=== PATIENT | male | born 1955 | race Caucasian/White ===

== ENCOUNTER 2020-07-17 07:17 | Outpatient (CLI) | payer MEDICARE, BC ==
[~2020-07-17] VITALS: Ht 185.4 cm; Wt 192.8 kg
[~2020-07-17 07:17] MED LIST: ALLO100T PO; ASPI-611 PO; CARV-50 PO; CETI-90 PO; DEXL60CA3 PO; DICL50TA8 PO; FENO145T26 PO; MODAFINIL PO; PIOG15TA8 PO; TRAM50TA2 PO; VALS320T2 PO; VENL-191 PO
[2020-07-17 07:51] LABS: ABG BASE EXCESS 0.8 mmol/L (-2.0-2.0); ABG HCO3 26.5 mmol/L (22.0-26.0); ABG PCO2 (T) 46.7 mmHg (35.0-48.0); ABG PO2 (T) 84.9 mmHg (75.0-100.0); ALLEN'S TEST POSITIVE; FLOW 3 L/min; FMetHb 0.1 % (0.0-1.5); FO2Hb 95.9 % (94-97); TOTAL HEMOGLOBIN 12.1 G/dl (14.0-18.0)
[2020-07-17] MEDS ORDERED: albuterol 2.5 MG/3 ML nebule NEB ONE (08:48)
== END 2020-07-17 23:59 | disposition home or self-care (01) ==
LOC: RT 07:17
PROVIDERS: ATTEND Internal Medicine Pulmonary Disease
DX: R06.02 Shortness of breath (principal); D64.9 Anemia, unspecified
CPT/HCPCS: 36600; 82803; 85018; 94060; 94727; 94729; 94760

== ENCOUNTER 2021-11-05 11:31 | Inpatient (IN) | payer MEDICARE, BC ==
[~2021-11-05] VITALS: Ht 188 cm; Wt 181.8 kg
[~2021-11-05 11:31] MED LIST changes: +ACET-1015 PO; +CHOL50004 PO; -DEXL60CA3 PO; -FENO145T26 PO; -MODAFINIL PO; +OLME40TA18 PO; -TRAM50TA2 PO; -VALS320T2 PO
[2021-11-05 13:17] LABS: BASOPHILS # (AUTO) 0.1 X10'3 (0-0.2); BASOPHILS % (AUTO) 0.4 % (0-1); EOSINOPHILS % (AUTO) 0.2 % (0-6); HEMOGLOBIN 10.5 g/dl (14.0-17.9); LYMPHOCYTES # (AUTO) 1.4 X10'3 (1.1-4.8); LYMPHOCYTES % (AUTO) 7.5 % (21-51); MEAN CORPUSCULAR HEMOGLOBIN 32.9 PG (27.0-31.0); MEAN CORPUSCULAR VOLUME 99.8 FL (78-98); MEAN PLATELET VOLUME 6.3 FL (7.4-10.4); MONOCYTES # (AUTO) 1.6 X10'3 (0-0.9); MONOCYTES % (AUTO) 8.8 % (2-12); NEUTROPHILS # (AUTO) 15.5 X10'3 (1.8-7.7); NEUTROPHILS % (AUTO) 83.1 % (42-75); PLATELET COUNT 340 X10'3 (140-440); RED BLOOD COUNT 3.21 X10'6 (4.70-6.10); RED CELL DISTRIBUTION WIDTH 14.8 % (11.5-14.5); WHITE BLOOD COUNT 18.6 X10'3 (4.5-11.0)
[2021-11-05 13:17] LABS: CLARITY,URINE CLOUDY (Clear); COLOR,URINE YELLOW (Yellow); GLUCOSE, URINE NEGATIVE (Neg); KETONES,URINE TRACE mg/dl (Neg); LEUKOCYTE ESTERASE ,URINE MODERATE (Neg); NITRITES, URINE POSITIVE (Neg); OCCULT BLOOD,URINE MODERATE (Neg); PH,URINE 5.5 (4.8-8.0); PROTEIN,URINE TRACE mg/dl (Neg); UROBILINOGEN,URINE 0.2 E.U/dL (0.2-1.0)
[2021-11-05 13:20] LABS: UA COLLECTION TYPE CLN CATCH MIDSTREAM
[2021-11-05 13:27] LABS: WBC,URINE TNTC /HPF (0-4)
[2021-11-05 13:28] LABS: BACTERIA,URINE 4+ /HPF (Neg); MUCUS STRANDS FEW /LPF (Neg); SQUAMOUS EPITHELIAL CELL,UR FEW /LPF (FEW)
[2021-11-05 13:29] LABS: TRANSITIONAL EPI CELLS,URINE FEW /HPF; WBC CLUMPS,URINE FEW /HPF (NEGATIVE)
[2021-11-05] MEDS ORDERED: normal saline 1000ml 1,000 ML IV ONE (13:35)
[2021-11-05] MEDS ORDERED: CefTRIAXone/D5W-Rocephin 1gm 50 ML IV ONE (13:35)
[2021-11-05 13:40] LABS: ALANINE AMINOTRANSFERASE 24 U/L (12-78); ALBUMIN 2.3 G/DL (3.4-5.0); ALBUMIN/GLOBULIN RATIO 0.6 (1.1-1.5); ALKALINE PHOSPHATASE 80 IU/L (46-116); ANION GAP 7 (8-16); ASPARTATE AMINO TRANSFERASE 15 U/L (10-37); BILIRUBIN,TOTAL 0.4 MG/DL (0.1-1.0); BLOOD UREA NITROGEN 24 MG/DL (7-18); BUN/CREATININE RATIO 16.4 (5.4-32.0); CALCIUM 8.8 MG/DL (8.5-10.1); CHLORIDE 100 MMOL/L (99-107); CREATININE 1.46 MG/DL (0.60-1.10); GLUCOSE 148 MG/DL (70-104); POTASSIUM 3.9 MMOL/L (3.5-5.1); SODIUM 137 MMOL/L (135-145); TOTAL CARBON DIOXIDE 29.9 MMOL/L (24-32); TOTAL PROTEIN 6.2 G/DL (6.4-8.2); eGFR 48 ML/MIN
[2021-11-05] MEDS ORDERED: ciprofloxacin lact 400MG/200ML 200 ML IV ONE (14:10)
--- NOTE | 2021-11-05 14:20 | NUR ---
PT TO/FROM CT WITHOUT INCIDENT
--- NOTE | 2021-11-05 14:35 | NUR ---
XRAY AT BEDSIDE.
[2021-11-05] MEDS ORDERED: PIOG45TA5 PO (15:27)
[2021-11-05] MEDS ORDERED: VENL75TA4 PO (15:30)
[2021-11-05] MEDS ORDERED: TRAM50TA2 PO (15:33)
[2021-11-05] MEDS ORDERED: CYAN500T15 PO (15:36)
[2021-11-05] MEDS ORDERED: traMADol 50MG tablet PO ONE (17:10)
[2021-11-05] MEDS ORDERED: HYDROcodone/acetaminophen 5mg/325mg tablet PO PRN (17:25)
[2021-11-05] MEDS ORDERED: HYDROcodone/acetaminophen 10/325mg tab PO PRN (17:25)
[2021-11-05] MEDS ORDERED: mag hydrox/Alum hydrox/simeth 30ml oral suspension PO PRN (17:25)
[2021-11-05] MEDS ORDERED: acetaminophen 325mg tablet PO PRN (17:25)
[2021-11-05] MEDS ORDERED: magnesium Cl slow-release 64mg tablet PO PRN (17:25)
[2021-11-05] MEDS ORDERED: morphine 2 MG/ML inj. syringe IV PRN ×2 (17:25)
[2021-11-05] MEDS ORDERED: POTASSIUM BICARB 20meq eff tab 20 MEQ TABLET.EFF PO PRN ×2 (17:25)
[2021-11-05] MEDS ORDERED: magnesium hydroxide 30ml (MOM) UD suspension PO PRN (17:25)
[2021-11-05] MEDS ORDERED: magnesium 4gm in 100ml NS 100 ML IV PRN (17:25)
[2021-11-05] MEDS ORDERED: potassium CL 10mEq/100ml bag 100 ML IV PRN (17:25)
[2021-11-05] MEDS ORDERED: MESSAGE TO PHARMACY PO ONE (17:40)
[2021-11-05] MEDS ORDERED: DEXTROSE 15 GM of carb/4 tabs (each vial/BOTTLE has 4 tablets) PO PRN ×2 (17:40)
[2021-11-05] MEDS ORDERED: glucagon, human recombinant 1mg kit SUBCUT PRN (17:40)
[2021-11-05] MEDS ORDERED: insulin Lispro (HumaLOG) vial - multi-dose SQ SCH (17:40)
[2021-11-05] MEDS ORDERED: dextrose 50%-water 50ml dispensing syringe IV PRN ×2 (17:40)
[2021-11-05] MEDS ORDERED: PERFLUTREN PROTEIN-A MICROSPHR (Optison) 0.22 MG/ML 3ML VIAL IV ONE (20:05)
[2021-11-05] MEDS: ciprofloxacin lact 400MG/200ML 200 ML IV SCH (20:11)
[2021-11-05] MEDS: carVEDilol 12.5mg tablet PO SCH (20:12)
[2021-11-05] MEDS: venlafaxine XR 75mg capsule (Q24H) PO SCH (20:12)
[2021-11-05] MEDS: docusate sod 100mg capsule PO SCH (20:12)
[2021-11-05] MEDS: insulin glargine (Lantus) pen - multi-dose SQ SCH (20:13)
[2021-11-06] MEDS: metroNIDAZOLE-Flagyl 500mg/NS 100 ML IV SCH ×2 (01:31→07:31)
[2021-11-06] MEDS: heparin, porcine 5000 units/ml vial SQ SCH ×2 (01:39→07:26)
[2021-11-06 06:41] LABS: BASOPHILS # (AUTO) 0.1 X10'3 (0-0.2); BASOPHILS % (AUTO) 0.4 % (0-1); EOSINOPHILS # (AUTO) 0.2 X10'3 (0-0.9); HEMATOCRIT 30.2 % (42.0-52.0); HEMOGLOBIN 10.2 g/dl (14.0-17.9); LYMPHOCYTES # (AUTO) 1.9 X10'3 (1.1-4.8); LYMPHOCYTES % (AUTO) 12.3 % (21-51); MEAN CORPUSCULAR HEMOGLOBIN 34.4 PG (27.0-31.0); MEAN CORPUSCULAR HGB CONC 33.9 g/dL (33.0-36.5); MEAN CORPUSCULAR VOLUME 101.4 FL (78-98); MEAN PLATELET VOLUME 6.3 FL (7.4-10.4); MONOCYTES # (AUTO) 1.7 X10'3 (0-0.9); MONOCYTES % (AUTO) 11.2 % (2-12); NEUTROPHILS # (AUTO) 11.5 X10'3 (1.8-7.7); NEUTROPHILS % (AUTO) 75.1 % (42-75); PLATELET COUNT 348 X10'3 (140-440); RED BLOOD COUNT 2.97 X10'6 (4.70-6.10); WHITE BLOOD COUNT 15.3 X10'3 (4.5-11.0)
[2021-11-06] MEDS: allopurinol 100mg tablet PO SCH (07:23)
[2021-11-06] MEDS: docusate sod 100mg capsule PO SCH ×2 (07:23→20:40)
[2021-11-06] MEDS: aspirin 81mg, enteric-coated 1 TAB TABLET.DR PO SCH (07:23)
[2021-11-06] MEDS: carVEDilol 12.5mg tablet PO SCH ×2 (07:24→20:40)
[2021-11-06] MEDS: venlafaxine XR 75mg capsule (Q24H) PO SCH ×2 (07:24→20:40)
[2021-11-06] MEDS: cholecalciferol (vitamin D3) 1,000 unit (25mcg) tablet PO SCH (07:25)
[2021-11-06 07:32] LABS: ALANINE AMINOTRANSFERASE 21 U/L (12-78); ALBUMIN 2.2 G/DL (3.4-5.0); ALBUMIN/GLOBULIN RATIO 0.6 (1.1-1.5); ALKALINE PHOSPHATASE 78 IU/L (46-116); ANION GAP 8 (8-16); ASPARTATE AMINO TRANSFERASE 14 U/L (10-37); BILIRUBIN,TOTAL 0.4 MG/DL (0.1-1.0); BLOOD UREA NITROGEN 22 MG/DL (7-18); BUN/CREATININE RATIO 15.4 (5.4-32.0); CALCIUM 8.2 MG/DL (8.5-10.1); CHLORIDE 102 MMOL/L (99-107); CREATININE 1.43 MG/DL (0.60-1.10); GLUCOSE 149 MG/DL (70-104); MAGNESIUM 1.6 MG/DL (1.5-2.4); POTASSIUM 3.8 MMOL/L (3.5-5.1); SODIUM 137 MMOL/L (135-145); TOTAL CARBON DIOXIDE 27.4 MMOL/L (24-32); eGFR 49 ML/MIN
[2021-11-06] MEDS ORDERED: furosemide 10 MG/1 ML 10ml inj IV SCH (08:00)
[2021-11-06] MEDS: cyanocobalamin 500mcg tablet PO SCH (08:23)
[2021-11-06] MEDS: cetirizine 10mg tablet PO SCH (08:23)
[2021-11-06] MEDS: ciprofloxacin lact 400MG/200ML 200 ML IV SCH ×2 (08:56→20:41)
[2021-11-06] MEDS: losartan 50mg tablet PO SCH (08:56)
--- NOTE | 2021-11-06 10:45 | NUR ---
Keke marley in [facility] - 11/06/21 at 1145 by KHUSHBOO Patient was picked up by JORJE for an Ct scan of the ABDOMEN at [facility].
--- NOTE | 2021-11-06 11:40 | NUR ---
Note amiewolf in ED - 11/06/21 at 1145 by KHUSHBOO Patient returned from [facility] with [facility] scan not done. According to [facility] the [facility] imaging needed a nurse to be present with the [facility] team and the patients imaging appointment was at 9 which the patient missed. Information of the transportation wasn't communicated between interprofessional members of the team and as the dayshi nurse I wasn't notified until [facility] showed up around 1040.
--- NOTE | 2021-11-06 11:46 | NUR ---
Patient was picked up by JORJE for an Ct scan of the ABDOMEN at [facility]. Addendum: 11/06/21 at 1146 by KOMAL Correction patient was picked up by JORJE around 1045 am
--- NOTE | 2021-11-06 11:46 | NUR ---
Patient returned from [facility] with CT scan not done. According to [facility] the [facility] needed a nurse to be present with the [facility] team and the patients imaging appointment was at 9 which the patient missed. Information of the transportation wasn't communicated between interprofessional members of the team and as the dayshift nurse I wasn't notified until [facility] showed up around 1040.
[2021-11-06] MEDS: ondansetron/PF 4mg/2ml inj IV PRN (11:56)
[2021-11-06 13:16] VITALS: BP 114/47
[2021-11-06 15:00] VITALS: BP 140/57
[2021-11-06] MEDS ORDERED: FURO40TA4 PO (16:52)
--- NOTE | 2021-11-06 17:41 | NUR ---
Report given to Mora ABARCA. Chance given to ask questions. Pt transferred with all personal belongings via [facility] to room 3013B. Spouse at bedside. Addendum: 11/06/21 at 1818 by Hosea Bynum RN Amended: Links added.
[2021-11-06 18:08] VITALS: BP 136/61
--- NOTE | 2021-11-06 19:29 | NUR ---
Patient alert and orientated. Vital signs stable. Nursing report given to night nurse.
[2021-11-06 22:00] VITALS: BP 118/47
[2021-11-06] MEDS ORDERED: traMADol 50MG tablet PO ONE (22:10)
[2021-11-07 02:00] VITALS: BP 134/52
[2021-11-07 06:00] VITALS: BP 115/51
--- NOTE | 2021-11-07 06:40 | NUR ---
Patient in room PCU 3013. I have received report from TEVIN Ye and had the opportunity to ask questions and assume patient care.
[2021-11-07] MEDS: heparin, porcine 5000 units/ml vial SQ SCH ×4 (07:17→15:25)
[2021-11-07] MEDS: metroNIDAZOLE-Flagyl 500mg/NS 100 ML IV SCH ×4 (07:17→15:26)
[2021-11-07] MEDS: insulin glargine (Lantus) pen - multi-dose SQ SCH (07:18)
[2021-11-07] MEDS: ondansetron/PF 4mg/2ml inj IV PRN (07:50)
[2021-11-07 08:25] LABS: BASOPHILS # (AUTO) 0.1 X10'3 (0-0.2); BASOPHILS % (AUTO) 0.7 % (0-1); EOSINOPHILS # (AUTO) 0.3 X10'3 (0-0.9); EOSINOPHILS % (AUTO) 3.3 % (0-6); HEMATOCRIT 31.4 % (42.0-52.0); HEMOGLOBIN 10.6 g/dl (14.0-17.9); LYMPHOCYTES # (AUTO) 1.5 X10'3 (1.1-4.8); LYMPHOCYTES % (AUTO) 16.3 % (21-51); MEAN CORPUSCULAR HEMOGLOBIN 34.1 PG (27.0-31.0); MEAN CORPUSCULAR HGB CONC 33.9 g/dL (33.0-36.5); MEAN CORPUSCULAR VOLUME 100.6 FL (78-98); MEAN PLATELET VOLUME 6.5 FL (7.4-10.4); MONOCYTES % (AUTO) 10.6 % (2-12); NEUTROPHILS # (AUTO) 6.3 X10'3 (1.8-7.7); NEUTROPHILS % (AUTO) 69.1 % (42-75); PLATELET COUNT 418 X10'3 (140-440); RED BLOOD COUNT 3.12 X10'6 (4.70-6.10); RED CELL DISTRIBUTION WIDTH 14.4 % (11.5-14.5); WHITE BLOOD COUNT 9.2 X10'3 (4.5-11.0)
[2021-11-07 08:58] LABS: ALANINE AMINOTRANSFERASE 27 U/L (12-78); ALBUMIN 2.2 G/DL (3.4-5.0); ALBUMIN/GLOBULIN RATIO 0.6 (1.1-1.5); ALKALINE PHOSPHATASE 86 IU/L (46-116); ANION GAP 9 (8-16); ASPARTATE AMINO TRANSFERASE 20 U/L (10-37); BILIRUBIN,TOTAL 0.3 MG/DL (0.1-1.0); BLOOD UREA NITROGEN 18 MG/DL (7-18); BUN/CREATININE RATIO 14.6 (5.4-32.0); CALCIUM 8.7 MG/DL (8.5-10.1); CHLORIDE 103 MMOL/L (99-107); CHOL/HDL RATIO 5.2 (0.00-4.99); CHOLESTEROL 156 MG/DL (0-200); CREATININE 1.23 MG/DL (0.60-1.10); GLUCOSE 157 MG/DL (70-104); HDL CHOLESTEROL 30 MG/DL (35-60); LDL CHOLESTEROL 91 MG/DL (50-100); MAGNESIUM 1.7 MG/DL (1.5-2.4); POTASSIUM 3.9 MMOL/L (3.5-5.1); SODIUM 140 MMOL/L (135-145); TOTAL CARBON DIOXIDE 28.5 MMOL/L (24-32); TOTAL PROTEIN 6.1 G/DL (6.4-8.2); TRIGLYCERIDES 147 MG/DL (20-135); eGFR 59 ML/MIN
[2021-11-07 10:00] VITALS: BP 127/49
[2021-11-07] MEDS ORDERED: normal saline 1000ml 1,000 ML IV SCH (10:10)
[2021-11-07] MEDS: carVEDilol 12.5mg tablet PO SCH (10:33)
[2021-11-07] MEDS: cetirizine 10mg tablet PO SCH (10:33)
[2021-11-07] MEDS: losartan 50mg tablet PO SCH (10:37)
[2021-11-07] MEDS: venlafaxine XR 75mg capsule (Q24H) PO SCH (10:38)
[2021-11-07] MEDS: allopurinol 100mg tablet PO SCH (10:38)
[2021-11-07] MEDS: aspirin 81mg, enteric-coated 1 TAB TABLET.DR PO SCH (10:38)
[2021-11-07] MEDS: cyanocobalamin 500mcg tablet PO SCH (10:38)
[2021-11-07] MEDS: cholecalciferol (vitamin D3) 1,000 unit (25mcg) tablet PO SCH (10:38)
[2021-11-07] MEDS ORDERED: traMADol 50MG tablet PO PRN (11:40)
[2021-11-07] MEDS ORDERED: pioglitazone 45mg tablet PO SCH ×2 (13:00→15:00)
[2021-11-07] MEDS ORDERED: TYPE IN GENERIC & BRAND NAME OF PATIENT MED STRENGTH & FORM PO SCH (13:00)
--- NOTE | 2021-11-07 14:40 | NUR ---
Noted pt with a low Kristian of 12. Per [facility] note pt with a reddened open wound to left axilla with no s/s of infection and red and moist left breast, pannus, and groin area. No significant wounds identified requiring additional nutrition intervention at this time. Pt currently on a CHO controlled 2 g Na restricted diet and eating well, documented with 75-100% PO intake. Will continue to follow and make recommendations as appropriate. Addendum: 11/07/21 at [address] Amended: Links added.
[2021-11-07 15:00] VITALS: BP 120/60
--- NOTE | 2021-11-07 17:45 | NUR ---
Pt transferred to [facility] via EMR. IV not DC'd. All belongings sent w/pt.
[2021-11-07] MEDS ORDERED: nystatin 15 GM powder TP SCH (21:00)
== END 2021-11-07 17:54 | DRG 871 ==
LOC: ER 11:32 → ED HOLD 17:33 → UNDOADMIN 17:33 → ED HOLD 19:48 → PCU 3S 11-06 17:58
PROVIDERS: ADMIT Family Medicine; ATTEND Family Medicine
PROC: 5A09357 Assistance with Respiratory Ventilation, Less than 24 Consecutive Hours, Continuous Positive Airway Pressure (ICD-10-PCS; principal; 2021-11-06)
DX: A41.9 Sepsis, unspecified organism (principal); I50.23 Acute on chronic systolic (congestive) heart failure; N39.0 Urinary tract infection, site not specified; Z68.43 Body mass index [BMI] 50.0-59.9, adult; B96.1 Klebsiella pneumoniae [K. pneumoniae] as the cause of diseases classified elsewhere; E11.9 Type 2 diabetes mellitus without complications; E66.01 Morbid (severe) obesity due to excess calories; F32.A Depression, unspecified; Z20.822 Contact with and (suspected) exposure to COVID-19; G47.30 Sleep apnea, unspecified; G89.29 Other chronic pain; I11.0 Hypertensive heart disease with heart failure; M19.90 Unspecified osteoarthritis, unspecified site; M54.9 Dorsalgia, unspecified; R31.9 Hematuria, unspecified; K57.90 Diverticulosis of intestine, part unspecified, without perforation or abscess without bleeding; I25.10 Atherosclerotic heart disease of native coronary artery without angina pectoris; I50.9 Heart failure, unspecified; J44.9 Chronic obstructive pulmonary disease, unspecified; K59.00 Constipation, unspecified; M1A.9XX0 Chronic gout, unspecified, without tophus (tophi); Z79.4 Long term (current) use of insulin; Z79.84 Long term (current) use of oral hypoglycemic drugs; Z83.3 Family history of diabetes mellitus; Z87.442 Personal history of urinary calculi; Z88.0 Allergy status to penicillin; Z91.018 Allergy to other foods; Z79.899 Other long term (current) drug therapy; Z79.82 Long term (current) use of aspirin; Z98.1 Arthrodesis status
CPT/HCPCS: 36415; 70450; 71045; 80053; 80061; 81001; 82948; 83605; 83735; 83880; 85025; 87040; 87077; 87081; 87088; 87186; 87811; 93306; 94660; 94760; 96365; 96367; 97161; 97530; 99285; A4314; A4349; A4615; A4649; A6250; A6258; G0378; J0690; J0696; J0744; J1644; J1815; J1940; J2270; J2405; J3490; J7030; J7060

== ENCOUNTER 2022-09-22 07:13 | Day surgery (SDC) | payer OTHER ==
[2022-09-21 12:18] LABS: BASOPHILS # (AUTO) 0.1 X10'3 (0-0.2); BASOPHILS % (AUTO) 0.6 % (0-1); EOSINOPHILS # (AUTO) 0.2 X10'3 (0-0.9); EOSINOPHILS % (AUTO) 2.4 % (0-6); HEMATOCRIT 39.5 % (42.0-52.0); HEMOGLOBIN 13.1 g/dl (14.0-17.9); LYMPHOCYTES # (AUTO) 1.4 X10'3 (1.1-4.8); LYMPHOCYTES % (AUTO) 15.4 % (21-51); MEAN CORPUSCULAR HEMOGLOBIN 33.2 PG (27.0-31.0); MEAN CORPUSCULAR HGB CONC 33.1 g/dL (33.0-36.5); MEAN CORPUSCULAR VOLUME 100.3 FL (78-98); MEAN PLATELET VOLUME 7.5 FL (7.4-10.4); MONOCYTES # (AUTO) 0.7 X10'3 (0-0.9); MONOCYTES % (AUTO) 7.9 % (2-12); NEUTROPHILS # (AUTO) 6.7 X10'3 (1.8-7.7); NEUTROPHILS % (AUTO) 73.7 % (42-75); PLATELET COUNT 242 X10'3 (140-440); RED BLOOD COUNT 3.94 X10'6 (4.70-6.10); RED CELL DISTRIBUTION WIDTH 15.8 % (11.5-14.5); WHITE BLOOD COUNT 9.1 X10'3 (4.5-11.0)
[2022-09-21 12:29] LABS: INR 1.1 INR; PROTHROMBIN TIME 11.4 SECONDS (9.0-12.0)
[2022-09-21 12:30] LABS: ALBUMIN 3.4 G/DL (3.4-5.0); ANION GAP 8 (8-16); BLOOD UREA NITROGEN 23 MG/DL (7-18); BUN/CREATININE RATIO 16.5 (10.0-20.0); CALCIUM 8.9 MG/DL (8.5-10.1); CHLORIDE 102 MMOL/L (99-107); CREATININE 1.39 MG/DL (0.60-1.10); GLUCOSE 194 MG/DL (70-104); POTASSIUM 4.1 MMOL/L (3.5-5.1); SODIUM 138 MMOL/L (135-145); eGFR 51 ML/MIN
[~2022-09-22] VITALS: Ht 188 cm; Wt 173.9 kg
[2022-09-22] VITALS (23 sets, daily range): BP systolic 116–160; BP diastolic 55–106; PULSE 76–119; RESP 14–18; TEMP 97.5; O2SAT 92–96
[~2022-09-22 07:13] MED LIST changes: +CYAN500T15 PO; +FURO40TA4 PO; -PIOG15TA8 PO; +PIOG45TA5 PO; +TRAM50TA2 PO; -VENL-191 PO; +VENL75TA4 PO
[2022-09-22] MEDS ORDERED: atropine 0.1mg/ml 10ml syringe IV ONE (07:40)
[2022-09-22] MEDS ORDERED: diphenhydrAMINE 25mg capsule PO ONE (07:40)
[2022-09-22] MEDS ORDERED: MIDAZolam 1mg/ml 10ml vial IV ONE (07:40)
[2022-09-22] MEDS ORDERED: morphine 10mg/ml inj. IV ONE (07:40)
[2022-09-22] MEDS ORDERED: normal saline 1000ml 1,000 ML IV SCH (07:40)
[2022-09-22] MEDS ORDERED: LORazepam 0.5 MG tablet PO ONE (07:40)
[2022-09-22] MEDS ORDERED: amiodarone 150mg/dext, iso-os 100 ML IV ONE (07:40)
[2022-09-22] MEDS ORDERED: FLEC100T (08:24)
[2022-09-22] MEDS ORDERED: APIX5TAB3 PO (08:25)
[2022-09-22] MEDS ORDERED: MONT-40 PO (08:25)
== END 2022-09-22 11:20 | disposition home or self-care (01) ==
LOC: SSTAY O 07:13
PROVIDERS: ATTEND Internal Medicine Cardiovascular Disease
DX: I48.0 Paroxysmal atrial fibrillation (principal); I25.10 Atherosclerotic heart disease of native coronary artery without angina pectoris; I42.0 Dilated cardiomyopathy; I47.1 Supraventricular tachycardia; E11.9 Type 2 diabetes mellitus without complications; E78.5 Hyperlipidemia, unspecified; I11.0 Hypertensive heart disease with heart failure; I50.9 Heart failure, unspecified; E66.01 Morbid (severe) obesity due to excess calories; Z68.38 Body mass index [BMI] 38.0-38.9, adult; G47.33 Obstructive sleep apnea (adult) (pediatric); F32.A Depression, unspecified; M19.049 Primary osteoarthritis, unspecified hand; Z88.0 Allergy status to penicillin; Z87.891 Personal history of nicotine dependence; Z98.890 Other specified postprocedural states; Z98.84 Bariatric surgery status; Z98.1 Arthrodesis status; Z79.899 Other long term (current) drug therapy; Z79.82 Long term (current) use of aspirin; Z79.01 Long term (current) use of anticoagulants; Z82.49 Family history of ischemic heart disease and other diseases of the circulatory system; Z82.3 Family history of stroke
CPT/HCPCS: 36415; 80048; 82948; 85025; 85610; 92960; 93005; J0282; J2250; J2274; J7030; A4615; A4620